=== PATIENT | female | born 1995 | race Two or more races ===

== ENCOUNTER 2018-01-17 15:28 | Emergency (ER) | payer MEDICAID ==
[~2018-01-17] VITALS: Ht 154.9 cm; Wt 56.7 kg
[~2018-01-17 15:28] MED LIST: Metronidazole PO; PREN-96 PO; SACC250C PO
[2018-01-17 17:24] VITALS: BP 120/72
[2018-01-17] MEDS ORDERED: HYDROcodone-ACET 10/325MG TAB PO ONE (18:15)
[2018-01-17] MEDS ORDERED: LIDOCAINE 1% (LOCAL ANESTH.) PF 5ml SDV ID ONE (18:15)
[2018-01-17] MEDS ORDERED: LIDOCAINE 1% (LOCAL ANESTH.) PF 5ml SDV IN ONE (19:00)
== END 2018-01-17 20:07 | disposition home or self-care (01) ==
LOC: ER 15:28
DX: L02.31 Cutaneous abscess of buttock (principal); Z90.89 Acquired absence of other organs; Z90.49 Acquired absence of other specified parts of digestive tract
CPT/HCPCS: 10060; 87205

== ENCOUNTER → 2018-03-11 | Outpatient (CLI) | payer MEDICAID ==
[2018-03-11 11:23] LABS: Alcohol, Urine < 3.0 mg/dL (0-5); Amphetamine Screen, Urine NEGATIVE (NEGATIVE); Barbiturate Scree,Urine NEGATIVE (NEGATIVE); Benzodiazephine Screen, Urine NEGATIVE (NEGATIVE); Cannabinoid Screen, Urine NEGATIVE (NEGATIVE); Cocaine Screen, Urine NEGATIVE (NEGATIVE); Opiate Scree,Urine NEGATIVE (NEGATIVE); Phencyclidine Screen, Urine NEGATIVE (NEGATIVE)
== END | disposition home or self-care (01) ==
LOC: LAB 10:06
PROVIDERS: ATTEND Obstetrics & Gynecology
DX: Z34.80 Encounter for supervision of other normal pregnancy, unspecified trimester (principal); Z3A.00 Weeks of gestation of pregnancy not specified
CPT/HCPCS: 36415; 80307; 84702; 86703; 87086; 87591

== ENCOUNTER 2018-09-15 11:25 | Observation (INO) | payer MEDICAID | END 2018-09-15 12:30 | disposition home or self-care (01) | DRG 566 | LOC: LDRP 11:25 | PROVIDERS: ADMIT Obstetrics & Gynecology; ATTEND Obstetrics & Gynecology | DX: O26.893 Other specified pregnancy related conditions, third trimester (principal); R20.0 Anesthesia of skin; R51 Headache; Z3A.36 36 weeks gestation of pregnancy | CPT/HCPCS: 59025; 81002; G0378 ==